=== PATIENT | female | born 1955 | race Caucasian/White ===

== ENCOUNTER → 2019-06-11 | Outpatient (CLI) | payer MEDICARE ==
[~2019-06-11] VITALS: Ht 160 cm; Wt 114.0 kg
[~2019-06-11] MED LIST: REGADENOSON 0.4 MG/5 ML SYR (LEXISCAN) IV ONE; meTOprolol 5 MG/5 ML (LOPRESSOR) VIAL ONE
[2019-06-11] MEDS: CATHETER FLUSH 10 ML SYR IV PRN ×2 (08:29→09:29)
[2019-06-11 09:27] VITALS: BP 219/76
--- NOTE | 2019-06-11 12:24 | STRESS TEST ---
DATE OF SERVICE: 06/11/2019 LEXISCAN MYOVIEW STRESS TEST REPORT REFERRING PHYSICIAN: Dr. Clemencia Del Castillo. Baseline heart rate is 71. Baseline blood pressure 219/76. Baseline EKG is sinus rhythm with no ischemic changes. In summary, the patient was injected with 10.1 mCi of technetium-99 Myoview and the resting images were obtained. Then, the patient received 0.4 mg of Lexiscan followed by 28.8 mCi of technetium-99 Myoview. Throughout the test, there were no EKG changes. The resting and stress images were reviewed and compared in the short axis, horizontal long axis, and vertical long axis views. Review of the images showed breast attenuation with reversible ischemia involving the mid to apical anterior wall and anterolateral wall. SSS is 8, SDS 8, TID value 1.02. On the gated images, the left ventricle appeared to be in normal size with normal contractility. Calculated ejection fraction 76%. CONCLUSION: 1. The patient tolerated Lexiscan well. 2. Breast attenuation with reversible ischemia involving the mid to apical anterior wall and anterolateral wall. 3. Normal left ventricular size with normal contractility. Calculated ejection fraction 76%. Job ID: [id number] DocumentID: [id number] Dictated Date: 06/11/2019 11:49:09 Senior Contracts Administrator Date: 06/11/2019 12:23:43 Dictated By: ANUJ GRACIA MD
== END ==
LOC: CARD 07:01
PROVIDERS: ATTEND Nurse Practitioner Family
DX: I07.1 Rheumatic tricuspid insufficiency (principal); I25.89 Other forms of chronic ischemic heart disease
CPT/HCPCS: 78452; 93017; 93306

== ENCOUNTER 2019-06-27 12:38 | Day surgery (SDC) | payer MEDICARE ==
[2019-06-26 15:45] VITALS: BP 109/71
[~2019-06-27] VITALS: Ht 160 cm; Wt 116.0 kg
[2019-06-27] VITALS (9 sets, daily range): BP systolic 95–139; BP diastolic 60–83
[2019-06-27] MEDS ORDERED: NS IV 1000 ML 1,000 ML ONE (12:45)
[2019-06-27] MEDS ORDERED: HEParin (CATH LAB) 2,000 ML IV ONE (12:45)
[2019-06-27] MEDS ORDERED: LIDOCAINE 1% INJ 20 ML 20 ML VIAL ONE (12:45)
[2019-06-27] MEDS ORDERED: NS IV 1000 ML 1,000 ML IV SCH (12:53)
[2019-06-27 12:58] LABS: BASOPHILS % (AUTO) 1 % (0-10); EOSINOPHILS # (AUTO) 0.4 10^3/uL (0.0-0.3); EOSINOPHILS % (AUTO) 6 % (0-10); HEMATOCRIT 43 % (35-52); HEMOGLOBIN 13.8 G/DL (11.5-16.0); LYMPHOCYTES # (AUTO) 1.4 X 10^3 (1.0-4.0); LYMPHOCYTES % (AUTO) 23 % (12-44); MEAN CORPUSCULAR HEMOGLOBIN 29 PG (25-34); MEAN CORPUSCULAR HGB CONC 32 G/DL (32-36); MEAN CORPUSCULAR VOLUME 91 FL (80-99); MEAN PLATELET VOLUME 9.4 FL (7.4-10.4); MONOCYTES # (AUTO) 0.5 X 10^3 (0.0-1.0); MONOCYTES % (AUTO) 9 % (0-12); NEUTROPHILS # (AUTO) 3.8 X 10^3 (1.8-7.8); NEUTROPHILS % (AUTO) 62 % (42-75); PLATELET COUNT 191 10^3/uL (130-400); RED CELL DISTRIBUTION WIDTH 14.2 % (10.0-14.5); WHITE BLOOD COUNT 6.1 10^3/uL (4.3-11.0)
[2019-06-27 13:03] LABS: BILIRUBIN,URINE NEGATIVE (NEGATIVE); CLARITY,URINE CLEAR; COLOR,URINE YELLOW; GLUCOSE, URINE (UA) NEGATIVE (NEGATIVE); KETONES,URINE NEGATIVE (NEGATIVE); LEUKOCYTE ESTERASE ,URINE NEGATIVE (NEGATIVE); NITRITE,URINE NEGATIVE (NEGATIVE); PROTEIN,URINE 1+ (NEGATIVE)
[2019-06-27 13:07] LABS: BACTERIA,URINE NEGATIVE /HPF
[2019-06-27 13:16] LABS: INR 0.9 (0.8-1.4)
[2019-06-27 13:25] LABS: ALANINE AMINOTRANSFERASE 17 U/L (0-55); ALKALINE PHOSPHATASE 142 U/L (40-136); BILIRUBIN,TOTAL 0.6 MG/DL (0.1-1.0); BUN/CREATININE RATIO 18; CALCIUM 9.7 MG/DL (8.5-10.1); CARBON DIOXIDE 30 MMOL/L (21-32); CHLORIDE 103 MMOL/L (98-107); CREATININE SERUM 0.78 MG/DL (0.60-1.30); GFR ESTIMATED > 60; GLUCOSE 100 MG/DL (70-105); POTASSIUM 4.2 MMOL/L (3.6-5.0); SODIUM 140 MMOL/L (135-145); TOTAL PROTEIN 7.1 GM/DL (6.4-8.2)
[2019-06-27 13:26] LABS: CHOLESTEROL 203 MG/DL (< 200); HDL CHOLESTEROL 32 MG/DL (40-60); TRIGLYCERIDES 258 MG/DL (<150); VLDL CHOLESTEROL 52 MG/DL (5-40)
[2019-06-27] MEDS ORDERED: PRAV40TA2 PO (13:40)
[2019-06-27] MEDS ORDERED: ESTR1TAB27 PO (13:40)
[2019-06-27] MEDS ORDERED: FLUO40CA PO (13:40)
[2019-06-27] MEDS ORDERED: TORS20TA3 PO (13:40)
[2019-06-27] MEDS ORDERED: OMEP20TA7 PO (13:42)
[2019-06-27] MEDS ORDERED: FA/M1TAB29 PO (13:42)
[2019-06-27] MEDS ORDERED: ASPI-983 PO (13:42)
[2019-06-27] MEDS ORDERED: GARL10002 PO (13:42)
[2019-06-27] MEDS ORDERED: MAGN250T13 PO (13:42)
--- NOTE | 2019-06-27 13:47 | NUR ---
SPOKE WITH PT (SHE HAD ALL HER BOTTLES) TO COMPLETE THE MED REC. THE PT WAS ABLE TO TELL ME HOW/WHEN SHE TAKES ALL HER MEDS. THE FOLLOWING ARE FILL DATES FROM BIPIN: 04-09-2019 FLUOXETINE #90/90DS 05-07-2019 TORSEMIDE #90/90DS 05-22-2019 ESTRACE #90/90 05-29-2019 PRAVASTATIN #90/90DS OTC MEDS: MAGNESIUM GARLIC ASPIRIN MTV OMEPRAZOLE ADVIL
[2019-06-27] MEDS ORDERED: IBUP-30 PO (13:53)
--- NOTE | 2019-06-27 13:58 | Diagnostic Imaging Report ---
INDICATION: Pre heart catheterization. TIME OF EXAM: 01:35 p.m. COMPARISON: No prior studies are available for comparison. FINDINGS: Changes of median sternotomy and CABG are noted. Heart size is normal. Lungs are clear. No infiltrates are seen. There is no effusion or pneumothorax. IMPRESSION: No acute cardiopulmonary process is detected. Dictated by: Dictated on workstation # [id number]
[2019-06-27] MEDS ORDERED: fentaNYL INJECTION 100 MCG/2 ML AMP ONE (14:25)
[2019-06-27] MEDS ORDERED: MIDAZOLAM 5 MG/5 ML (VERSED) VIAL ONE (14:25)
[2019-06-27] MEDS ORDERED: NITRO DRIP 25000 MCG/D5W 0 ML IV ONE (14:48)
[2019-06-27] MEDS ORDERED: HEParin 1000 UNIT/ML (10ML VIAL) FOR BOLUS ONE (14:48)
[2019-06-27] MEDS ORDERED: ASPIRIN 325 MG (5 GR) TABLET ONE (15:24)
[2019-06-27] MEDS: NS IV 1000 ML 1,000 ML IV SCH (15:24)
[2019-06-27] MEDS ORDERED: TICAGRELOR 90 MG TABLET (BRILINTA) PO ONE (15:24)
--- NOTE | 2019-06-27 15:26 | Cardiac Procedure Note-CS/ASA ---
Pre-Procedure Note Pre-Op Procedure Note H&P Reviewed The H&P was reviewed, patient examined and no changes noted. Date H&P Reviewed: Jun 27, 2019 Time H&P Reviewed: 13:00 Conscious Sedation Pre-Proced Time 13:00 ASA Score 3 For ASA 3 and 4: Consider anesthesia and medical clearance. Also, for patients with a history of failed moderate sedation consider anesthesia. Airway Lungs Heart ASA score ASA 1: a normal healthy patient ASA 2: a patient with a mild systemic disease (mid diabetes, controlled hypertension, obesity x ASA 3: a patient with a severe systemic disease that limits activity (angina, COPD, prior Myocardial infarction) ASA 4: a patient with an incapacitating disease that is a constant threat to life (CHF, renal failure) ASA 5: a moribund patient not expected to survive 24 hrs. (ruptured aneurysm) ASA 6: a declared brain- patient whose organs are being harvested. For emergent operations, add the letter E after the classification Mallampati Classification Grade 3 Sedation Plan Analgesia, Amnesia, Plan communicated to team members, Discussed options with patient/fam, Discussed risks with patient/fam The patient is an appropriate candidate to undergo the planned procedure, sedation, and anesthesia. The patient immediately re-assessed prior to indication. ANUJ GRACIA MD Jun 27, 2019 15:26 POS
[2019-06-27] MEDS ORDERED: PATIENT MAY USE OWN MEDS, ALL PO SCH (15:30)
--- NOTE | 2019-06-27 15:32 | Cardiac Cath Report ---
Cardiac Cath Report Physician (s)/Stunner Animal (s) Physician ANUJ GRACIA MD Pre-Procedure Diagnosis Pre-Procedure Diagnosis: Chest pain, coronary artery disease Post-Procedure Note Procedure Start Date: Jun 27, 2019 Name of Procedure: Left heart catheterization Vein graft angiogram Stent to the right coronary artery Findings/Procedure Note PROCEDURE NOTE: 63-year-old lady with history of coronary artery disease CABG 2, had an abnormal stress test, scheduled for cardiac catheterization possible PTCA After explaining the procedure to the patient, all pros and cons were explained, all questions were answered. The patient signed the consent and then she was placed on the cardiac catheterization laboratory. Groin was prepped SL fashion local anesthesia was used. Sheath placed in the right femoral artery. Sujata right and left catheter were used to access the coronary system.Vein Graft Pigtail was used to access the left ventricular cavity. Left ventriculogram was not done, pressure was measured I had difficulty intubating the right coronary artery, decided to proceed with practice intervention due to severe mid right coronary artery stenosis, I tried FR, AR 2, WM guides, I was successful with the WM guide in accessing the right coronary artery, 5000 units of heparin were use, BMW wire was advanced distally, it was unable to advance the stent through the lesion, remove the stent and proceeded with balloon angioplasty using 2.5 balloon and then proceeded with deployment of 2.25 x 18 mm stent expanded to 2.53 mm under 15 lacey with excellent results, and 2 g showed no residual stenosis At the end of the procedure the sheath was removed. Closure device was used FINDINGS: Hemodynamics LV 139/17, end-diastolic pressure of 17 Aorta 137/63 mean of 94 ANATOMY: Left Main has severe stenosis, subtotal occlusion at the origin of the LAD and circumflex artery Left Anterior Descending is subtotally occluded proximally, vein graft to the mid LAD is patent with good flow distally Left Circumflex has severe stenosis proximally, the vein graft to the obtuse marginal branch is patent with excellent flow distally Right Coronory Artery is nondominant artery with severe stenosis at the midportion, complex intervention with deployment of Hilda 2.25 x 18 mm drug- eluting stent expanded to 2.53 mm under 18 lacey with excellent results Vein Graft evaluation showed 2 vein graft appeared to be sharing the ostium, vein graft to the LAD which is patent with excellent flow distally, vein graft to the obtuse marginal is patent with excellent flow distally LV Gram was not done, pressure was measured CONCLUSION: 1. Severe mid right coronary artery stenosis, none bypassed artery, successful complex angioplasty due to the origin of the right coronary artery, multiple guides were used, I was successful with the Jack miller in accessing the right coronary artery, balloon angioplasty then stent deployment using Hilda 2.25 x 18 millimeter expanded to 2.53 mm with excellent results 2. Severe alutiiq left coronary system stenosis, patent vein graft to the LAD and vein graft to the obtuse marginal branch with excellent flow distally DISCUSSION AND RECOMMENDATION: patient was started on aspirin and Brilinta, I will start Lipitor 80 mg daily instead of pravastatin and monitor tolerance and response Anesthesia Type: Conscious Sedation Estimated blood loss (mL): 35 ml Contrast Amount: 173 ml Total Radiation Dose: 2194 mGy Post-Procedure Diagnosis Post-operative diagnosis: Chest pain Coronary artery disease Hypertension Hyperlipidemia ANUJ GRACIA MD Jun 27, 2019 15:32 POS
[2019-06-27] MEDS ORDERED: TICAGRELOR 90 MG TABLET (BRILINTA) PO SCH (21:00)
[2019-06-28 00:30] VITALS: BP 169/77
[2019-06-28] MEDS: NS IV 1000 ML 1,000 ML IV SCH (02:06)
[2019-06-28 04:07] LABS: HEMOGLOBIN 13.3 G/DL (11.5-16.0); MEAN PLATELET VOLUME 9.6 FL (7.4-10.4); WHITE BLOOD COUNT 6.4 10^3/uL (4.3-11.0)
[2019-06-28 04:19] LABS: BUN/CREATININE RATIO 14; CALCIUM 9.1 MG/DL (8.5-10.1); CARBON DIOXIDE 22 MMOL/L (21-32); CHLORIDE 106 MMOL/L (98-107); CREATININE SERUM 0.77 MG/DL (0.60-1.30); GFR ESTIMATED > 60; GLUCOSE 132 MG/DL (70-105); SODIUM 139 MMOL/L (135-145)
[2019-06-28 04:42] VITALS: BP 158/84
[2019-06-28] MEDS ORDERED: OMEPRAZOLE 20 MG (PriLOSEC) CAP NON-FORMULARY PO SCH (07:00)
--- NOTE | 2019-06-28 07:34 | Cardiology Progress Note ---
Subjective Date Seen by Provider: Jun 28, 2019 Time Seen by Provider: 07:33 Subjective/Events-last exam Patient is sitting in a chair, feeling well, groin is healing well, denied any chest pain Review of Systems General: No Chills, No Night Sweats, No Fatigue, No Malaise, No Appetite, No Ot her HEENT: No Head Aches, No Visual Changes, No Eye Pain, No Ear Pain, No Dysp hasia, No Sinus Congestion, No Post Nasal Drip, No Sore Throat, No Other Pulmonary: No Dyspnea, No Cough, No Pleuritic Chest Pain, No Other Cardiovascular: No: Chest Pain, Palpitations, Orthopnea, Paroxysmal Noc. Dyspnea, Edema, Lt Headedness, Other Objective-Cardiology Exam Last Set of Vital Signs Vital Signs 06/28/19 04:42 Temp 35.2 Pulse 71 Resp 20 B/P (MAP) 158/84 (108) Pulse Ox 96 O2 Delivery Room Air Capillary Refill : Less Than 3 Seconds I&O Intake and Output 06/28/19 00:00 Intake Total 350 ml Balance 350 ml Intake Oral 350 ml # Voids 2 General: Alert, Oriented X3, Cooperative HEENT: Atraumatic, PERRLA Neck: Supple, No JVD, No Thyromegaly Lungs: Clear to Auscultation, Normal Air Movement Heart: Regular Rate, Normal S1, Normal S2, No Murmurs Abdomen: Normal Bowel Sounds, Soft, No Tenderness, No Hepatosplenomegaly, No Masses Extremities: No Clubbing, No Cyanosis, No Edema, Normal Pulses, No Tenderness/Swelling Skin: No Rashes, No Breakdown, No Significant Lesion Neuro: Normal Gait, Normal Speech, Strength at 5/5 X4 Ext, Normal Tone, Sensation Intact Psych/Mental Status: Mental Status NL, Mood NL Results Lab Laboratory Tests 06/27/19 12:50 06/28/19 03:40 A/P-Cardiology Admission Diagnosis Chest pain Coronary artery disease Hypertension Hyperlipidemia Assessment/Plan Chest pain, reporting improvement Coronary artery disease, history of CABG, complex intervention with stenting to the right coronary artery 1. Severe mid right coronary artery stenosis, none bypassed artery, successful complex angioplasty due to the origin of the right coronary artery, multiple guides were used, I was successful with the Jack miller in accessing the right coronary artery, balloon angioplasty then stent deployment using Hilda 2.25 x 18 millimeter expanded to 2.53 mm with excellent results 2. Severe [place] left coronary system stenosis, patent vein graft to the LAD and vein graft to the obtuse marginal branch with excellent flow distally Hypertension, monitor blood pressure Hyperlipidemia, started on aggressive statin Obesity, educated on weight loss and exercise ANUJ GRACIA MD Jun 28, 2019 07:34 POS
[2019-06-28] MEDS ORDERED: ATOR80TA64 PO (07:37)
[2019-06-28] MEDS ORDERED: TICA90TA PO (07:37)
--- NOTE | 2019-06-28 07:38 | Discharge Inst-Post CATH ---
Discharge Inst-CATH/EP Problems Reviewed?: Yes Post Cardiac Cath/EP D/C Inst Follow Up/Plan Appointment with Dr. GRACIA's office in 2-4 weeks <b>CARDIAC CATH/EP PROCEDURE DISCHARGE INSTRUCTIONS</b> ACTIVITY * Go Home directly and rest. * Limit activity of the leg (or wrist if it was used) for 7 days including aerobics, swimming, jogging, bicycling, etc. * Restrict stair-climbing for 7 days if possible, if not, climb up with your non-cath leg, then bring together on the same step. * Avoid lifting, pushing, pulling or excessive movement of the affected extremity for 7 days. * Customary sexual activity may be resumed after 2 days-use caution not to use a position that strains or causes pain to the affected extremity. * No driving for 24 hours. * NO SMOKING. * Avoid straining for bowel movements for 7 days. * Gentle walking on level ground is allowed. * Returning to work will depend on the type of procedure and the results. Your doctor will discuss this with you. CALL YOUR DOCTOR FOR ANY OF THE FOLLOWING: *If bleeding from the puncture site occurs- Apply gentle pressure to site with clean cloth and call your doctor or EMS. * If a knot or lump forms under the skin, increases in size, or causes pain. * If bruising appears to be worsening or moving further down your leg instead of disappearing. * Temperature above 101 F. CARE OF YOUR GROIN INCISION; * Bruising or purple discoloration of the skin near the puncture site is common. * You may shower only, no bathtub bathing for 5 days. Be careful to avoid slipping as your leg may feel stiff. * If a closure device was used on your femoral artery, please see the attached guide regarding care of the device and your leg. * Leave dressing on FOR 24 hours. CARE OF YOUR WRIST INCISION; * Bruising or purple discoloration of the skin near the puncture site is common. * You may shower. * DO NOT submerge wrist. * Leave dressing on FOR 24 hours. ANUJ GRACIA MD Jun 28, 2019 07:38 POS
[2019-06-28 08:00] VITALS: BP 120/82
[2019-06-28] MEDS ORDERED: ASPIRIN E.C. 81 MG (ECOTRIN) TAB PO SCH ×2 (09:00)
[2019-06-28] MEDS ORDERED: ESTRADIOL 1 MG TAB (ESTRACE) PO SCH (09:00)
[2019-06-28] MEDS ORDERED: TORSEMIDE 20 MG (DEMADEX) TAB PO SCH (09:00)
--- OUTSIDE RECORDS SUMMARY | 2019-07-23 06:52 | XMS REPORT | Continuity of Care Document ---
Author Organization Unknown Address Unknown Phone Unavailable Allergies Active Description Code Type Severity Reaction Onset Reported/Identified Relationship to Patient Clinical Status Yes No Allergy Information Available [id number] Drug Allergy Unknown N/A 019 Yes latex [id number] Drug Allergy Unknown N/A 06/27/2019 Yes silicone [id number] Drug Allergy Unknown N/A 06/27/2019 Yes tetracycline [id number] Drug Allergy Unknown N/A 06/27/2019 Medications There is no data. Problems Date Dx Coded Attending Type Code Diagnosis Diagnosed By 06/22/2019 USMAN MYAS APRN Ot I07.1 RHEUMATIC TRICUSPID INSUFFICIENCY 06/22/2019 USMAN MAYS APRN Ot I25.89 OTHER FORMS OF CHRONIC ISCHEMIC HEART DI 06/28/2019 ANUJ GRACIA MD Ot E66. 01 MORBID (SEVERE) OBESITY DUE TO EXCESS CA 06/28/2019 ANUJ GRACIA MD, Ot E78. 2 MIXED HYPERLIPIDEMIA 06/28/2019 ANUJ GRACIA MD, Ot I07. 1 RHEUMATIC TRICUSPID INSUFFICIENCY 06/28/2019 ANUJ GRACIA MD Ot I10 ESSENTIAL (PRIMARY) HYPERTENSION 06/28/2019 ANUJ GRACIA MD Ot I25. 10 ATHSCL HEART DISEASE OF [place] CORONARY 06/28/2019 ANUJ GRACIA MD, Ot I65. 29 OCCLUSION AND STENOSIS OF UNSPECIFIED CA 06/28/2019 ANUJ GRACIA MD, Ot Z68. 42 BODY MASS INDEX (BMI) 45.0-49.9, ADULT 06/28/2019 ANUJ GRACIA MD, Ot Z79. 82 MCC (CURRENT) USE OF ASPIRIN 06/28/2019 ANUJ GRACIA MD, Ot Z79.899 OTHER MANUSCRIPT READER (CURRENT) DRUG THERAPY 06/28/2019 ANUJ GRACIA MD, Ot Z87.891 PERSONAL HISTORY OF NICOTINE DEPENDENCE 06/28/2019 ANUJ GRACIA MD, Ot Z88. 1 ALLERGY STATUS TO OTHER ANTIBIOTIC AGENT 06/28/2019 ANUJ GRACIA MD Ot Z88. 8 ALLERGY STATUS TO OT DRUG/MEDS/BIOL SUB 06/28/2019 ANUJ GRACIA MD Ot Z90.710 ACQUIRED ABSENCE OF BOTH CERVIX AND UTER 06/28/2019 ANUJ GRACIA MD Ot Z91.040 LATEX ALLERGY STATUS 06/28/2019 ANUJ GRACIA MD Ot Z95. 0 PRESENCE OF CARDIAC PACEMAKER 07/02/2019 ANUJ GRACIA MD Ot E66. 01 MORBID (SEVERE) OBESITY DUE TO EXCESS CA 07/02/2019 ANUJ GRACIA MD Ot E78. 2 MIXED HYPERLIPIDEMIA 07/02/2019 ANUJ GRACIA MD Ot I07. 1 RHEUMATIC TRICUSPID INSUFFICIENCY 07/02/2019 ANUJ GRACIA MD Ot I10 ESSENTIAL (PRIMARY) HYPERTENSION 07/02/2019 ANUJ GRACIA MD Ot I25. 10 ATHSCL HEART DISEASE OF [place] CORONARY 07/02/2019 ANUJ GRACIA MD Ot I65. 29 OCCLUSION AND STENOSIS OF UNSPECIFIED CA 07/02/2019 ANUJ GRACIA MD Ot Z68. 42 BODY MASS INDEX (BMI) 45.0-49.9, ADULT 07/02/2019 ANUJ GRACIA MD Ot Z79. 82 MCC (CURRENT) USE OF ASPIRIN 07/02/2019 ANUJ GRACIA MD Ot Z79.899 OTHER MANUSCRIPT READER (CURRENT) DRUG THERAPY 07/02/2019 ANJU GRACIA MD Ot Z87.891 PERSONAL HISTORY OF NICOTINE DEPENDENCE 07/02/2019 ANUJ GRACIA MD Ot Z88. 1 ALLERGY STATUS TO OTHER ANTIBIOTIC AGENT 07/02/2019 ANUJ GRACIA MD Ot Z88. 8 ALLERGY STATUS TO OT DRUG/MEDS/BIOL SUB 07/02/2019 ANUJ GRACIA MD Ot Z90.710 ACQUIRED ABSENCE OF BOTH CERVIX AND UTER 07/02/2019 ANUJ GRACIA MD Ot Z91.040 LATEX ALLERGY STATUS 07/02/2019 ANUJ GRACIA MD Ot Z95. 0 PRESENCE OF CARDIAC PACEMAKER 07/04/2019 ANUJ GRACIA MD Ot E66. 01 MORBID (SEVERE) OBESITY DUE TO EXCESS CA 07/04/2019 ANUJ GRACIA MD Ot E78. 2 MIXED HYPERLIPIDEMIA 07/04/2019 ANUJ GRACIA MD, Ot I07. 1 RHEUMATIC TRICUSPID INSUFFICIENCY 07/04/2019 ANUJ GRACIA MD Ot I10 ESSENTIAL (PRIMARY) HYPERTENSION 07/04/2019 ANUJ GRACIA MD, Ot I25. 10 ATHSCL HEART DISEASE OF [place] CORONARY 07/04/2019 ANUJ GRACIA MD, Ot I65. 29 OCCLUSION AND STENOSIS OF UNSPECIFIED CA 07/04/2019 ANUJ GRACIA MD, Ot Z68. 42 BODY MASS INDEX (BMI) 45.0-49.9, ADULT 07/04/2019 ANUJ GRACIA MD, Ot Z79. 82 MCC (CURRENT) USE OF ASPIRIN 07/04/2019 ANUJ GRACIA MD, Ot Z79.899 OTHER MCC (CURRENT) DRUG THERAPY 07/04/2019 ANUJ GRACIA MD, Ot Z87.891 PERSONAL HISTORY OF NICOTINE DEPENDENCE 07/04/2019 ANUJ GRACIA MD, Ot Z88. 1 ALLERGY STATUS TO OTHER ANTIBIOTIC AGENT 07/04/2019 ANUJ GRACIA MD, Ot Z88. 8 ALLERGY STATUS TO OT DRUG/MEDS/BIOL SUB 07/04/2019 ANUJ GRACIA MD, Ot Z90.710 ACQUIRED ABSENCE OF BOTH CERVIX AND UTER 07/04/2019 ANUJ GRACIA MD, Ot Z91.040 LATEX ALLERGY STATUS 07/04/2019 ANUJ GRACIA MD, Ot Z95. 0 PRESENCE OF CARDIAC PACEMAKER Procedures There is no data. Results Test Result Range Automated blood complete blood count ( mogram) panel - 06/28/19 03:40 Blood leukocytes automated count (number/volume) 6.4 10*3/uL 4.3-11.0 Blood erythrocytes automated count (number/volume) 4.49 10*6/uL 4.35-5.85 Venous blood hemoglobin measurement (mass/volume) 13.3 g/dL 11.5-16.0 Blood hematocrit (volume fraction) 40 % 35-52 Automated erythrocyte mean corpuscular volume 90 [ foz_us] 80-99 Automated erythrocyte mean corpuscular h emoglobin (mass per erythrocyte) 30 pg 25-34 Automated erythrocyte mean corpuscular h emoglobin concentration measurement (mass/volume) 33 g/dL 32-36 Automated erythrocyte distribution width ratio 14. 0 % 10.0- 14.5 Automated blood platelet count (count/volume) 187 10*3/uL 130-400 Automated blood platelet mean volume measurement 9.6 [foz_us] 7.4-10.4 Whole blood basic metabolic panel - 12/10 03:40 Serum or plasma sodium measurement (moles/volume) 139 mmol/L 135-145 Serum or plasma potassium measurement (moles/volume) 4.0 mmol/L 3.6-5.0 Serum or plasma chloride measurement (moles/volume) 106 mmol/L 98-107 Carbon dioxide 22 mmol/L 21-32 Serum or plasma anion gap determination (moles/volume) 11 mmol/L 5-14 Serum or plasma urea nitrogen measurement (mass/volume ) 11 mg/dL 7-18 Serum or plasma creatinine measurement (mass/volume) 0.77 mg/dL 0.60-1.30 Serum or plasma urea nitrogen/creatinine mass ratio 14 NRG Serum or plasma creatinine measurement w ith calculation of estimated glomerular filtration rate > NRG Serum or plasma glucose measurement (mass/volume) 132 mg/dL 70-105 Serum or plasma calcium measurement (mass/volume) 9.1 mg/dL 8.5-10.1 Encounters ACCT No. Visit Date/Time Discharge Status Pt. 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
== END 2019-06-28 09:34 | disposition home or self-care (01) ==
LOC: CATH 12:38 → CSD 15:45 → CATH 06-28 09:34
PROVIDERS: ATTEND Internal Medicine Cardiovascular Disease
DX: I25.10 Atherosclerotic heart disease of native coronary artery without angina pectoris (principal); I10 Essential (primary) hypertension; E78.2 Mixed hyperlipidemia; I07.1 Rheumatic tricuspid insufficiency; E66.01 Morbid (severe) obesity due to excess calories; I65.29 Occlusion and stenosis of unspecified carotid artery; Z95.0 Presence of cardiac pacemaker; Z88.1 Allergy status to other antibiotic agents; Z91.040 Latex allergy status; Z88.8 Allergy status to other drugs, medicaments and biological substances; Z79.82 Long term (current) use of aspirin; Z79.899 Other long term (current) drug therapy; Z87.891 Personal history of nicotine dependence; Z68.42 Body mass index [BMI] 45.0-49.9, adult; Z90.710 Acquired absence of both cervix and uterus
CPT/HCPCS: 36415; 71045; 80048; 80053; 80061; 81000; 85025; 85027; 85347; 85610; 85730; 93005; 93453

== ENCOUNTER → 2020-12-03 | Outpatient (CLI) | payer MEDICARE ==
[~2020-12-03] VITALS: Ht 160 cm; Wt 114.0 kg
[~2020-12-03] MED LIST changes: +ASPI-1238 PO; +ATOR80TA64 PO; +ESTR1TAB27 PO; +FA/M1TAB29 PO; +FLUO40CA PO; +GARL10002 PO; +IBUP-30 PO; +MAGN250T13 PO; +OMEP20TA7 PO; +PRAV40TA2 PO; +TICA90TA PO; +TORS20TA3 PO; -meTOprolol 5 MG/5 ML (LOPRESSOR) VIAL ONE
[2020-12-03] MEDS: CATHETER FLUSH 10 ML SYR IV PRN ×2 (10:57→12:58)
[2020-12-03 12:56] VITALS: BP 149/93
--- NOTE | 2020-12-03 15:29 | Cardiology Stress Test Report ---
Stress Test Report Date of Procedure/Referring: Date of Procedure: December 03, 2020 PCP Teresa Pfeiffer Admitting Physician Center/[facility] Indications: HTN Baseline Blood Pressure: Blood Pressure Systolic: 149 Blood Pressure Diastolic: 93 Baseline Vitals Vital Signs Date Time Temp Pulse Resp B/P (MAP) Pulse Ox O2 Delivery O2 Flow Rate FiO2 12/03/20 12:56 69 14 149/93 (111) 98 Room Air Baseline EKG: Baseline EKG: NSR Summary After explaining the procedure to the patient, she signed a consent and then brought to the stress nuclear laboratory. Patient received 0.4 mg Lexiscan for stress test, ECG, heart rate and blood pressure were monitored continuously. Resting and stress dose of radio tracer were injected, imaging was acquired and reviewed in short axis, horizontal long axis and vertical long axis views. TID: 1.02 SSS: 4 SDS: 3 EF: 71 1. Patient tolerated Lexiscan well 2. Breast attenuation with typical female pattern, no significant ischemia or infarction on SPECT images 3. Normal left ventricular size, EF 71% ANUJ GRACIA MD December 03, 2020 15:29
== END ==
LOC: CARD 09:26
PROVIDERS: ATTEND Physician Assistant
DX: I25.10 Atherosclerotic heart disease of native coronary artery without angina pectoris (principal); I10 Essential (primary) hypertension
CPT/HCPCS: 78452; 93017; 93306; A9502

== ENCOUNTER → 2021-05-07 | Outpatient (CLI) | payer MEDICARE ==
[~2021-05-07] MED LIST changes: +CATHETER FLUSH 10 ML SYR IV PRN; +HOLD METFORMIN - RECEIVED CONTRAST 20 ML VIAL IV SCH; +IOHEXOL 350 MG/ML 100 ML (OMNIPAQUE 350) VIAL IV ONE; +NS 100 ML (IVPB) BAG IV ONE; -REGADENOSON 0.4 MG/5 ML SYR (LEXISCAN) IV ONE
[2021-05-07 09:22] LABS: CREATININE SERUM 0.73 MG/DL (0.60-1.30)
--- NOTE | 2021-05-07 10:30 | Diagnostic Imaging Report ---
INDICATION: Carotid stenosis ordered as follow-up however I have no priors for comparison or relevant correlation. PROCEDURE: Post IV contrast-enhanced CT angio neck performed with 2-D and 3-D reconstructions. There is mild atherosclerotic plaque, patent and nonaneurysmal in the thoracic aortic arch. There is normal sequencing of the branching pattern of the great vessels. There is severe stenosis of the takeoff of the left vertebral artery stenosed by 80% or greater. Beyond its proximal high-grade stenosis, the left vertebral appeared widely patent and unremarkable throughout and is codominant with the contralateral nonfocal right vertebral. The intradural vertebral arteries were patent. The basilar is nonfocal but somewhat small diffusely. The right [employer]TENA[employer] is off the carotid as a variant with circulation. There is a patent left PCOM and the left [employer], where visualized, appeared normal. The bilateral common carotids are patent to the carotid bulbs and bifurcations. There is mild calcified as well as [id number] soft plaque right greater than left. This extends into the proximal ICAs. The right proximal ICA is stenosed by about 40% transverse diameter. The left is not significantly narrowed. Beyond that level, the cervical internal carotid arteries were widely patent and symmetric. The intracranial ICAs patent with some non-stenosing calcified plaques at their cavernous segments. The A1 segments and the proximal anterior and middle cerebral arterial segments included in the [id number] unremarkable. IMPRESSION: 1. High-grade stenosis takeoff left vertebral, beyond that level the vertebral arteries were widely patent, symmetric and codominant. 2. Right greater than left carotid bifurcation plaque however no hemodynamically significant degree of cervical or proximal intracranial anterior circulation arterial stenosis. Dictated on workstation # [id number]
== END ==
LOC: RAD FS 08:42
PROVIDERS: ATTEND Internal Medicine Cardiovascular Disease
DX: I65.23 Occlusion and stenosis of bilateral carotid arteries (principal)
CPT/HCPCS: 36415; 70498; 82565; 84520

== ENCOUNTER → 2023-05-23 | Outpatient (CLI) | payer MEDICARE, OTHER ==
[~2023-05-23] MED LIST changes: -CATHETER FLUSH 10 ML SYR IV PRN; +CATHETER FLUSH 10 ML SYR IVP PRN; -HOLD METFORMIN - RECEIVED CONTRAST 20 ML VIAL IV SCH; -IOHEXOL 350 MG/ML 100 ML (OMNIPAQUE 350) VIAL IV ONE; -NS 100 ML (IVPB) BAG IV ONE; +OMEP20TA56 PO; -OMEP20TA7 PO; +REGADENOSON 0.4 MG/5 ML SYR IV ONE
[2023-05-23 09:48] VITALS: BP 157/84
--- NOTE | 2023-05-23 16:31 | Cardiology Stress Test Report ---
Stress Test Report Date of Procedure/Referring: Date of Procedure: May 23, 2023 PCP Clemencia Del Castillo Aprn Admitting Physician Admitting Physician: Attending Physician: Laz Helms MD Baseline Heart Rate: 73 Baseline Blood Pressure: Blood Pressure Systolic: 157 Blood Pressure Diastolic: 84 Baseline Vitals Vital Signs Date Time Temp Pulse Resp B/P (MAP) Pulse Ox O2 Delivery O2 Flow Rate FiO2 05/23/23 09:48 73 157/84 (108) 98 Baseline EKG: Baseline EKG: NSR Summary After explaining the procedure to the patient, she signed a consent and then brought to the stress nuclear laboratory. Patient received 0.4 mg Lexiscan for stress test, ECG, heart rate and blood pressure were monitored continuously. Resting and stress dose of radio tracer were injected, imaging was acquired and reviewed in short axis, horizontal long axis and vertical long axis views. TID: 0.97 SSS: 4 SDS: 4 EF: 73 Patient tolerated Lexiscan well Poor quality images with extracardiac attenuation affecting the quality, there is questionable reversible ischemia involving the mid anterior wall and mid anterior lateral wall. Normal left ventricular size, ejection fraction 73% CC DANELLE Pizano BASHAR J MD May 23, 2023 16:31
== END ==
LOC: CARD 08:15
PROVIDERS: ATTEND Internal Medicine Cardiovascular Disease
DX: I11.9 Hypertensive heart disease without heart failure (principal); I34.0 Nonrheumatic mitral (valve) insufficiency; I25.10 Atherosclerotic heart disease of native coronary artery without angina pectoris
CPT/HCPCS: 78452; 93017; A9502; C8929; 93306